=== PATIENT | female | born 1965 | race Caucasian/White ===

== ENCOUNTER 2017-10-21 16:33 | Emergency (ER) | payer SELFPAY ==
[~2017-10-21] VITALS: Ht 162.6 cm; Wt 114.0 kg
[2017-10-21 16:36] VITALS: BP 164/77; PULSE 96; RESP 16; TEMP 97.5; O2SAT 97
--- NOTE | 2017-10-21 17:05 | PD ---
HPI Chief Complaint: Edema Time Seen by Provider: 17:00 Travel History International Travel<30 days: No Contact w/Intl Traveler<30days: No Traveled to known affect area: No History of Present Illness HPI 52-year-old female presents to the emergency room for evaluation of right leg pain and swelling for the past 2 weeks. Pain is intermittent and worse when she walks long distances. She has worsening edema after walking long distances. She denies ecchymosis or erythema. Localized to the posterior thigh without radiation. States she has noticed increasing varicose veins in her right leg. Denies trauma or injury. She denies paresthesias. She has history of DVT in the left leg 8 years ago and states this feels the same. She was placed on Coumadin 8 years ago for 6 months. Denies chest pain or shortness of breath. Medical conditions include diabetes, chronic back pain, and hypothyroidism. PFSH Past Medical History Diabetes: Yes ?: Not Social History Tobacco Use: No Allergies-Medications (Allergen,Severity, Reaction): Coded Allergies: No Known Allergies (Unverified , 10/21/17) Reported Meds & Prescriptions Reported Meds & Active Scripts Active Reported [lortab] 10 Mg QID Methadone (Methadone HCl) 10 Mg Tab 20 Mg PO QID Metformin (Metformin HCl) 500 Mg Tab 500 Mg PO BIDPC Gabapentin 800 Mg Tab 800 Mg PO TID Levothyroxine (Levothyroxine Sodium) 150 Mcg Tab 150 Mcg PO DAILY Review of Systems Except as stated in HPI: all other systems reviewed are Neg Physical Exam Narrative GENERAL: Well-nourished, well-developed female in no acute distress. Afebrile. Ambulatory. SKIN: Focused skin assessment warm/dry. No erythema or ecchymosis. HEAD: Normocephalic. EYES: No scleral icterus. No injection or drainage. NECK: Supple, trachea midline. No JVD or lymphadenopathy. CARDIOVASCULAR: Regular rate and rhythm without murmurs, gallops, or rubs. RESPIRATORY: Breath sounds equal bilaterally. No accessory muscle use. MUSCULOSKELETAL: No cyanosis. No obvious edema. 2+ dorsalis pedis pulse. Full range of motion. No tenderness to palpation of the calf or thigh. Data Data Last Documented VS Vital Signs Date Time Temp Pulse Resp B/P (MAP) Pulse Ox O2 Delivery O2 Flow Rate FiO2 12/7/17 16:36 97.5 96 16 164/77 (497) 97 Room Air Orders Orders Us Leg Venous Doppler (10/21/17 ) MDM Medical Decision Making Medical Screen Exam Complete: Yes Emergency Medical Condition: Yes Medical Record Reviewed: Yes Differential Diagnosis DVT, muscle strain, muscle spasm, PVD Narrative Course 52-year-old female presents to the emergency room for evaluation of right thigh pain for the past 2 weeks. Pain is worsened with ambulation. She has history of DVT in the left leg and states this feels the same. Denies any trauma or injury. Exam reveals right lower extremity is neurovascularly intact with 2+ dorsalis pedis pulse. Patient has full range of motion. No obvious edema. No erythema or ecchymosis. No tenderness to palpation of the thigh or calf. Ultrasound is negative. Patient made aware of incidental finding. She was reassured and told to follow up with her PCP in one week for repeat ultrasound if symptoms persist. Also informed of the possibility of PVD with recommendation for follow-up with recreational specialist. Told to return for worsening symptoms. She understands and agrees with plan. Diagnosis Primary Impression: Right leg pain Referrals: Primary Care Physician Additional Instructions: Apply ice to the affected area for 20 minutes at a time, as needed for pain and swelling. Follow-up with a primary care physician for outpatient PVD studies or repeat ultrasound in 1 week if symptoms persist. Also for lymphadenopathy. Return to the emergency room for worsening symptoms. Med/Other Pt SpecificInfo: Prescription(s) given Disposition: 01 DISCHARGE HOME Condition: Stable Saige Rodriguez Oct 21, 2017 17:05
[2017-10-21] MEDS ORDERED: METF500T PO (17:11)
[2017-10-21] MEDS ORDERED: METH10TA PO (17:11)
[2017-10-21] MEDS ORDERED: GABA800T PO (17:11)
[2017-10-21] MEDS ORDERED: lortab (17:11)
[2017-10-21] MEDS ORDERED: LEVO150T7 PO (17:11)
--- NOTE | 2017-10-21 18:30 | RADRPT ---
EXAM DATE/TIME: 10/21/2017 17:56 [facility] COMPARISON: No previous studies available for comparison. INDICATIONS : Right leg pain and swelling. MEDICAL HISTORY : Hypothyroidism. Deep venous thrombosis. SURGICAL HISTORY : Cholecystectomy. section. Spinal fusion. ENCOUNTER: Initial ACUITY: 2 weeks PAIN SCORE: 2/10 LOCATION: Right leg. TECHNIQUE: Venous ultrasound of the leg was performed from the inguinal ligament to the proximal calf. Real-ned e, color Doppler and spectral tracing, compression and augmentation techniques were used. FINDINGS: There is normal compressibility of the deep venous system from the inguinal region to the proximal ca lf. No echogenic clot is seen in the lumen of the common femoral, femoral, popliteal, and posterior tibial veins. There is a normal response of the venous system to proximal and distal augmentation an d respiration. Incidental note is made of a mildly enlarged right groin lymph node measuring 3.9 x 2. 0 x 1.0 cm. CONCLUSION: 1. No evidence of deep venous thrombosis within the right lower extremity. 2. Incidentally noted mildly enlarged right groin lymph node measuring 3.9 x 2.0 x 1.0 cm. which is n onspecific Wilian Arana MD on October 21, 2017 at 18:27 Board Certified Radiologist. This report was verified electronically.
[2017-10-23] MEDS ORDERED: HYDR-3583 PO (11:05)
== END 2017-10-21 19:01 | disposition home or self-care (01) ==
LOC: NEPK 16:33
DX: M79.604 Pain in right leg (principal); E03.9 Hypothyroidism, unspecified; E11.9 Type 2 diabetes mellitus without complications; G89.29 Other chronic pain; Z86.718 Personal history of other venous thrombosis and embolism; Z79.84 Long term (current) use of oral hypoglycemic drugs; Z79.899 Other long term (current) drug therapy
CPT/HCPCS: 93971; 99284